=== PATIENT | male | born 1975 | race Caucasian/White ===

== ENCOUNTER 2020-06-20 15:53 | Inpatient (IN) | payer SELFPAY ==
[2020-06-20 15:58] VITALS: BMI 18.2
[2020-06-20 16:10] VITALS: BP 138/83; PULSE 108; RESP 15; O2SAT 97
--- NOTE | 2020-06-20 16:14 | CT_ITS ---
WS: [id number] CT scan of the head, 06/20/2020 Clinical Data: psychosis/AMS Comparison: None. DLP: 891.[address] scans at [facility] use at least one of these dose optimization techniques: automat ed exposure control; mA and/or kV adjustment per patient size (includes targeted exams where dose is matched to clinical indication); or iterative reconstruction. Findings: The ventricular system is normal without shift. No recent infarct or hemorrhage is seen. There are no abnormal intracerebral masses. The cerebellum and brainstem are not remarkable. Bony windows of the skull and skull base show no fractures or erosions. The mastoid air cells, pharmacy grad intern al auditory canals, sella turcica, intraorbital contents, and paranasal sinuses are unremarkable. CT/CT head wo con* 82488 Impression: Negative CT scan of the head
--- NOTE | 2020-06-20 16:15 | ED_ITS ---
Documented by User: MAC Sue 06/20/20 17:01 HPI - Psych General: Chief Complaint: Psychiatric Symptoms Stated Complaint: PSYCH EVAL Time Seen by Provider: 06/20/20 16:01 Source: police Mode of arrival: ambulatory Limitations: no limitations History of Present Illness: HPI Narrative: Patient is a 45-year-old male who presents to ED today via EMS for complaints of paranoia and bizarre behavior. According to EMS patient overheard an announcement that the radio that his cigarettes had been poisoned with arsenic. Patient tells me he feels like [employer] has his phone bugged. He tells me he is going to prank the [employer] and place his cell phone up to a [employer] radio and have the information broadcasted globally. Patient denies history of psychiatric illness. He denies drug use. We have no previous records for patient. MD complaint: other (psychosis ) Associated symptoms: Deny homicidal ideation or suicidal ideation Review of Systems Const: Denies: fever(s) or chills Eyes: Denies: change in vision Card: Denies: chest pain Resp: Denies: dyspnea GI: Denies: abdominal pain Musc: Denies: neck pain or back pain Skin/Breast: Denies: rash Neuro: Denies: headache(s) Psych: Reports: other (denies hallucinations/paranoia); Denies: suicidal ideation or homicidal ideation Physical Exam Const: COMMON NORMALS: no acute distress, patient oriented x3, no limitations and alert EXAM LIMITATIONS: other limitations (psychosis) GENERAL APPEARANCE: cooperative ORIENTATION/CONSCIOUSNESS: Yes awake, Yes oriented to person, Yes oriented to place and Yes oriented to time HENMT: TEETH & GINGIVA: Yes poor dentition Resp: COMMON NORMALS: normal respiratory effort and clear to auscultation bilaterally AUSCULTATION: clear to auscultation bilaterally Cardio: COMMON NORMALS: regular rate and regular rhythm RATE: regular rate RHYTHM: regular rhythm Neuro: ALEX COMA SCALE: document GCS findings Alex coma scale eye opening: Spontaneous Alex coma scale verbal response: Orientated [place] coma scale motor response: Obey commands Alex coma scale total score: 15 COMMON NORMALS: patient oriented x3 SENSORIUM/ORIENTATION: Yes alert, Yes oriented to person, Yes oriented to place and Yes oriented to time Psych: COMMON NORMALS: Normal thought process present, cooperative, activity/motor behavior normal, denies hallucinations, denies homicidal ideation and denies suicidal ideation APPEARANCE: Yes grossly normal ATTITUDE: Yes paranoid ACTIVITY/MOTOR BEHAVIOR: Yes appropriate eye contact SPEECH: Yes slow MOOD & AFFECT: Yes euthymic mood THOUGHT PROCESS: Normal thought process present ATTENTION/CONCENTRATION: Yes attention grossly intact and Yes concentration grossly intact MEMORY/COGNITION: Yes memory grossly intact INSIGHT: Poor insight present (Psych) JUDGEMENT: Limited judgement present (Psych) MDM - Psych MDM Narrative: Medical decision making narrative: Care transferrd to [facility] pending work up/labs. CT head ordered due to no known hx of psychosis. This is negative. Lab Data: Labs: Lab Results 06/20/20 06/20/20 06/20/20 Range/Units 17:45 17:45 19:26 WBC 8.3 (4.0-10.0) 10^3/ uL RBC 4.86 (4.1-5.3) 10^6/u L Hgb 15.6 (11.7-16.6) g/dL Hct 46.8 (42.0-52.0) % MCV 96.3 H (80-94) fL MCH 32.1 (28.0-34.0) pg MCHC 33.3 (30.0-36.0) g/dL RDW 12.4 (12.1-15.1) % Plt Count 319 (130-400) 10^3/c mm MPV 9.6 (7.4-10.4) fL Neut % (Auto) 64.8 % Lymph % (Auto) 24.0 % Platte % (Auto) 9.3 % Eos % (Auto) 1.0 % Baso % (Auto) 0.5 % Neut # (Auto) 5.35 (1.8-7.7) 10^3/u L Lymph # (Auto) 2.0 (0.8-4.8) 10^3/u L Platte # (Auto) 0.8 (0.2-0.9) 10^3/u L Eos # (Auto) 0.1 (0.0-0.8) 10^3/u L Baso # (Auto) 0.0 (0.0-0.1) 10^3/u L Nucleated RBC % (a uto) 0 % Nucleated RBCs # 0.0 /100WBC Sodium (136-145) mmol/L Potassium (3.5-5.1) mmol/L Chloride (98-107) mmol/L Carbon Dioxide (22-29) mmol/L Anion Gap (5-19) BUN (6-20) mg/dL Creatinine (0.7-1.2) mg/dL GFR Calculation (90-130) mL/min Glucose (65-115) mg/dL Calculated Osmolal ity (285-295) mOsm/k g Calcium (8.5-10.5) mg/dL Total Bilirubin (0.15-1.2) mg/dL AST (0-40) U/L ALT (0-41) U/L Alkaline Phosphata se (40-130) IU/L Total Protein (6.6-8.7) g/dL Albumin (3.5-5.2) g/dL Globulin (1.3-4.6) g/dL TSH (0.27-4.20) uIU/ mL Urine Color Yellow (Yellow) Urine Appearance Clear (CLEAR) Urine pH 5 (5-7) Ur Specific Gravit y 1.020 (1.005-1.030) Urine Protein Neg (Negative) Urine Glucose (UA) Norm (Normal) Urine Ketones 1+ H (Negative) Urine Blood Neg (Negative) Urine Nitrate Negative (Negative) Urine Bilirubin Neg (Negative) Urine Urobilinogen Norm (Negative) mg/dL Ur Leukocyte Jenni ase Negative (Negative) Salicylates (3-10) mg/dL Urine Opiates Scre en Negative (Negative) ng/mL Acetaminophen (10-30) ug/mL Ur Barbiturates Sc reen Negative (Negative) ng/mL Ur Phencyclidine S crn Negative (Negative) ng/mL Ur Amphetamines Sc reen Negative (Negative) ng/mL U Benzodiazepines Scrn Negative (Negative) ng/mL Urine Cocaine Scre en Negative (Negative) ng/mL U Marijuana (THC) Screen Negative (Negative) ng/mL Ethyl Alcohol (0-10) mg/dL 06/20/20 Range/Units 19:26 WBC (4.0-10.0) 10^3/ uL RBC (4.1-5.3) 10^6/u L Hgb (11.7-16.6) g/dL Hct (42.0-52.0) % MCV (80-94) fL MCH (28.0-34.0) pg MCHC (30.0-36.0) g/dL RDW (12.1-15.1) % Plt Count (130-400) 10^3/c mm MPV (7.4-10.4) fL Neut % (Auto) % Lymph % (Auto) % Platte % (Auto) % Eos % (Auto) % Baso % (Auto) % Neut # (Auto) (1.8-7.7) 10^3/u L Lymph # (Auto) (0.8-4.8) 10^3/u L Platte # (Auto) (0.2-0.9) 10^3/u L Eos # (Auto) (0.0-0.8) 10^3/u L Baso # (Auto) (0.0-0.1) 10^3/u L Nucleated RBC % (a uto) % Nucleated RBCs # /100WBC Sodium 138 (136-145) mmol/L Potassium 4.0 (3.5-5.1) mmol/L Chloride 101 (98-107) mmol/L Carbon Dioxide 27 (22-29) mmol/L Anion Gap 14.0 (5-19) BUN 11 (6-20) mg/dL Creatinine 0.8 (0.7-1.2) mg/dL GFR Calculation 105.0 (90-130) mL/min Glucose 91 (65-115) mg/dL Calculated Osmolal ity 285 (285-295) mOsm/k g Calcium 9.5 (8.5-10.5) mg/dL Total Bilirubin 0.4 (0.15-1.2) mg/dL AST 19 (0-40) U/L ALT 12 (0-41) U/L Alkaline Phosphata se 55 (40-130) IU/L Total Protein 7.4 (6.6-8.7) g/dL Albumin 4.6 (3.5-5.2) g/dL Globulin 2.8 (1.3-4.6) g/dL TSH 1.73 (0.27-4.20) uIU/ mL Urine Color (Yellow) Urine Appearance (CLEAR) Urine pH (5-7) Ur Specific Gravit y (1.005-1.030) Urine Protein (Negative) Urine Glucose (UA) (Normal) Urine Ketones (Negative) Urine Blood (Negative) Urine Nitrate (Negative) Urine Bilirubin (Negative) Urine Urobilinogen (Negative) mg/dL Ur Leukocyte Jenni ase (Negative) Salicylates 1.3 L (3-10) mg/dL Urine Opiates Scre en (Negative) ng/mL Acetaminophen < 5.0 L (10-30) ug/mL Ur Barbiturates Sc reen (Negative) ng/mL Ur Phencyclidine S crn (Negative) ng/mL Ur Amphetamines Sc reen (Negative) ng/mL U Benzodiazepines Scrn (Negative) ng/mL Urine Cocaine Scre en (Negative) ng/mL U Marijuana (THC) Screen (Negative) ng/mL Ethyl Alcohol < 10 (0-10) mg/dL Imaging Data^: CT Head: Radiologist's impression: [address] [address] [address] Scan Report Signed Patient: Hakan Lubin JRUnit #: [id number] : 1975Acct#:[id number] Age/Sex: 45 / MADM Date: 06/20/20 Loc: ERRoom/Bed: Attending Dr: Ordering Provider/Ordering MD: Genny Smith Date of Service: 06/20/20 Procedure(s): CT head wo con* [id number] Accession Number(s): [id number] Report Number: [id number] WS: [id number] CT scan of the head, 06/20/2020 Clinical Data: psychosis/AMS Comparison: None. DLP: 891.[address] scans at [facility] use at least one of these dose optimization techniques: automated exposure control; mA and/or kV adjustment per patient size (includes targeted exams where dose is matched to clinical indication); or iterative reconstruction. Findings: The ventricular system is normal without shift. No recent infarct or hemorrhage is seen. There are no abnormal intracerebral masses. The cerebellum and brainstem are not remarkable. Bony windows of the skull and skull base show no fractures or erosions. The mastoid air cells, internal auditory canals, sella turcica, intraorbital contents, and paranasal sinuses are unremarkable. CT/CT head wo con* 81568 Impression: Negative CT scan of the head Dictated By:Rhoda Abreu MD Signed By:Rhoda Abreu MDSigned Date/Time:06/20/20 1636 DD/ 163 Discharge Plan Discharge Patient Disposition: Admitted As Inpatient Admit Provider: Krish Cool Clinical Impression: Acute psychosis Condition: Stable Sign Out Sign Out Data: Patient Sign Out occurred on 06/20/20 at 17:35. Patient's care was discussed, and care was transferred from to MELI Daly. Post-Handoff Eval: Report received from MAC Sue, agree with HPI and clinical exam completed by MAC Sue. Serology testing pending at this time. Coding Level of Care Code ED Market Basket Maker for Chg Fwd Exam Detailed Documented by User: MELI Daly 06/21/20 00:01 HPI - Psych General: Chief Complaint: Psychiatric Symptoms Stated Complaint: PSYCH EVAL Time Seen by Provider: 06/20/20 16:01 MDM - Psych Lab Data: Labs: Lab Results 06/20/20 06/20/20 06/20/20 Range/Units 17:45 17:45 19:26 WBC 8.3 (4.0-10.0) 10^3/ uL RBC 4.86 (4.1-5.3) 10^6/u L Hgb 15.6 (11.7-16.6) g/dL Hct 46.8 (42.0-52.0) % MCV 96.3 H (80-94) fL MCH 32.1 (28.0-34.0) pg MCHC 33.3 (30.0-36.0) g/dL RDW 12.4 (12.1-15.1) % Plt Count 319 (130-400) 10^3/c mm MPV 9.6 (7.4-10.4) fL Neut % (Auto) 64.8 % Lymph % (Auto) 24.0 % Platte % (Auto) 9.3 % Eos % (Auto) 1.0 % Baso % (Auto) 0.5 % Neut # (Auto) 5.35 (1.8-7.7) 10^3/u L Lymph # (Auto) 2.0 (0.8-4.8) 10^3/u L Platte # (Auto) 0.8 (0.2-0.9) 10^3/u L Eos # (Auto) 0.1 (0.0-0.8) 10^3/u L Baso # (Auto) 0.0 (0.0-0.1) 10^3/u L Nucleated RBC % (a uto) 0 % Nucleated RBCs # 0.0 /100WBC Sodium (136-145) mmol/L Potassium (3.5-5.1) mmol/L Chloride (98-107) mmol/L Carbon Dioxide (22-29) mmol/L Anion Gap (5-19) BUN (6-20) mg/dL Creatinine (0.7-1.2) mg/dL GFR Calculation (90-130) mL/min Glucose (65-115) mg/dL Calculated Osmolal ity (285-295) mOsm/k g Calcium (8.5-10.5) mg/dL Total Bilirubin (0.15-1.2) mg/dL AST (0-40) U/L ALT (0-41) U/L Alkaline Phosphata se (40-130) IU/L Total Protein (6.6-8.7) g/dL Albumin (3.5-5.2) g/dL Globulin (1.3-4.6) g/dL TSH (0.27-4.20) uIU/ mL Urine Color Yellow (Yellow) Urine Appearance Clear (CLEAR) Urine pH 5 (5-7) Ur Specific Gravit y 1.020 (1.005-1.030) Urine Protein Neg (Negative) Urine Glucose (UA) Norm (Normal) Urine Ketones 1+ H (Negative) Urine Blood Neg (Negative) Urine Nitrate Negative (Negative) Urine Bilirubin Neg (Negative) Urine Urobilinogen Norm (Negative) mg/dL Ur Leukocyte Jenni ase Negative (Negative) Salicylates (3-10) mg/dL Urine Opiates Scre en Negative (Negative) ng/mL Acetaminophen (10-30) ug/mL Ur Barbiturates Sc reen Negative (Negative) ng/mL Ur Phencyclidine S crn Negative (Negative) ng/mL Ur Amphetamines Sc reen Negative (Negative) ng/mL U Benzodiazepines Scrn Negative (Negative) ng/mL Urine Cocaine Scre en Negative (Negative) ng/mL U Marijuana (THC) Screen Negative (Negative) ng/mL Ethyl Alcohol (0-10) mg/dL 06/20/20 Range/Units 19:26 WBC (4.0-10.0) 10^3/ uL RBC (4.1-5.3) 10^6/u L Hgb (11.7-16.6) g/dL Hct (42.0-52.0) % MCV (80-94) fL MCH (28.0-34.0) pg MCHC (30.0-36.0) g/dL RDW (12.1-15.1) % Plt Count (130-400) 10^3/c mm MPV (7.4-10.4) fL Neut % (Auto) % Lymph % (Auto) % [place]atte % (Auto) % Eos % (Auto) % Baso % (Auto) % Neut # (Auto) (1.8-7.7) 10^3/u L Lymph # (Auto) (0.8-4.8) 10^3/u L Platte # (Auto) (0.2-0.9) 10^3/u L Eos # (Auto) (0.0-0.8) 10^3/u L Baso # (Auto) (0.0-0.1) 10^3/u L Nucleated RBC % (a uto) % Nucleated RBCs # /100WBC Sodium 138 (136-145) mmol/L Potassium 4.0 (3.5-5.1) mmol/L Chloride 101 (98-107) mmol/L Carbon Dioxide 27 (22-29) mmol/L Anion Gap 14.0 (5-19) BUN 11 (6-20) mg/dL Creatinine 0.8 (0.7-1.2) mg/dL GFR Calculation 105.0 (90-130) mL/min Glucose 91 (65-115) mg/dL Calculated Osmolal ity 285 (285-295) mOsm/k g Calcium 9.5 (8.5-10.5) mg/dL Total Bilirubin 0.4 (0.15-1.2) mg/dL AST 19 (0-40) U/L ALT 12 (0-41) U/L Alkaline Phosphata se 55 (40-130) IU/L Total Protein 7.4 (6.6-8.7) g/dL Albumin 4.6 (3.5-5.2) g/dL Globulin 2.8 (1.3-4.6) g/dL TSH 1.73 (0.27-4.20) uIU/ mL Urine Color (Yellow) Urine Appearance (CLEAR) Urine pH (5-7) Ur Specific Gravit y (1.005-1.030) Urine Protein (Negative) Urine Glucose (UA) (Normal) Urine Ketones (Negative) Urine Blood (Negative) Urine Nitrate (Negative) Urine Bilirubin (Negative) Urine Urobilinogen (Negative) mg/dL Ur Leukocyte Jenni ase (Negative) Salicylates 1.3 L (3-10) mg/dL Urine Opiates Scre en (Negative) ng/mL Acetaminophen < 5.0 L (10-30) ug/mL Ur Barbiturates Sc reen (Negative) ng/mL Ur Phencyclidine S crn (Negative) ng/mL Ur Amphetamines Sc reen (Negative) ng/mL U Benzodiazepines Scrn (Negative) ng/mL Urine Cocaine Scre en (Negative) ng/mL U Marijuana (THC) Screen (Negative) ng/mL Ethyl Alcohol < 10 (0-10) mg/dL EKG Data^: EKG 1: EKG interpretation date: 06/20/20 EKG interpretation time: 19:55 Prior EKG tracings: not available for review Other EKG comments: Sinus rhythm, borderline right axis deviation, nonspecific T wave abnormality Discharge Plan Discharge Patient Disposition: Admitted As Inpatient Admit Provider: Krish Cool Clinical Impression: Acute psychosis Condition: Stable Sign Out Sign Out Data: Patient Sign Out occurred on 06/20/20 at 17:35. Patient's care was discussed, and care was transferred from to MELI Daly. Post-Handoff Eval: Report received from MAC Sue, agree with HPI and clinical exam completed by MAC Sue. Serology testing pending at this time. Coding Level of Care Code ED Market Basket Maker for Chg Fwd Exam Detailed
[2020-06-20 17:10] VITALS: BP 105/46; PULSE 80; RESP 15; O2SAT 97
[2020-06-20 17:47] LABS: Add Urine Microscopic? NO
[2020-06-20 17:56] LABS: Bilirubin Urine Neg (Negative); Blood Urine Neg (Negative); Glucose Urine UA Norm (Normal); Ketones Urine 1+ (Negative); Leukocyte Esterase Urine Negative (Negative); Nitrate Urine Negative (Negative); Protein Urine Neg (Negative); Urine Appearance Clear (CLEAR); Urine Color Yellow (Yellow); Urobilinogen Urine Norm (Negative); pH Urine 5 (5-7)
[2020-06-20 18:03] LABS: Amphetamines Screen Urine Negative (Negative); Barbiturates Screen Urine Negative (Negative); Benzodiazepines Screen Urine Negative (Negative); Cocaine Screen Urine Negative (Negative); Opiate Screen Urine Negative (Negative); PCP Screen Urine Negative (Negative); THC Screen Urine Negative (Negative)
[2020-06-20] MEDS: diphenhydrAMINE 50 mg/mL SDV 1mL IM (18:20)
--- NOTE | 2020-06-20 18:25 | ECG_ITS ---
[facility] Test Date: 2020-06-20 Pat Name: Hakan Lubin Department: Room: Gender: Male Career Developer: : 1975 Requested By: Roxie Sandoval Order Number: [id number] Floridalma MD: Isabel Cross M.D. Measurements Intervals [place] Rate: 83 P: 67 AK: 137 QRS: 94 QRSD: 87 T: 35 QT: 333 QTc: 392 Interpretive Statements SINUS RHYTHM BORDERLINE RIGHT AXIS DEVIATION [QRS AXIS > 90] NONSPECIFIC T-WAVE ABNORMALITY No previous ECG available for comparison Electronically Signed On 06-20-2020 20:20:09 FITTINGS TIGHTENER by Isabel Cross M.D. [id number]
[2020-06-20 19:55] LABS: Basophils % 0.5 %; Eosinophils # 0.1 10^3/uL (0.0-0.8); Hematocrit 46.8 % (42.0-52.0); Hemoglobin 15.6 g/dL (11.7-16.6); Mean Corpuscular HGB Conc 33.3 g/dL (30.0-36.0); Mean Corpuscular Hemoglobin 32.1 pg (28.0-34.0); Mean Corpuscular Volume 96.3 fL (80-94); Mean Platelet Volume 9.6 fL (7.4-10.4); Monocytes # 0.8 10^3/uL (0.2-0.9); Monocytes % 9.3 %; Neutrophils # 5.35 10^3/uL (1.8-7.7); Neutrophils % 64.8 %; Nucleated Red Blood Cells % 0 %; Platelet Count 319 10^3/cmm (130-400); Red Blood Count 4.86 10^6/uL (4.1-5.3); Red Cell Distribution Width 12.4 % (12.1-15.1); White Blood Count 8.3 10^3/uL (4.0-10.0)
[2020-06-20 20:20] LABS: Alanine Aminotransferase 12 U/L (0-41); Albumin Level 4.6 g/dL (3.5-5.2); Alkaline Phosphatase 55 IU/L (40-130); Aspartate Amino Transferase 19 U/L (0-40); Blood Urea Nitrogen 11 mg/dL (6-20); Calcium 9.5 mg/dL (8.5-10.5); Carbon Dioxide 27 mmol/L (22-29); Chloride 101 mmol/L (98-107); Globulin 2.8 g/dL (1.3-4.6); Glucose 91 mg/dL (65-115); Osmolality Calculated 285 mOsm/kg (285-295); Salicylate 1.3 mg/dL (3-10); Sodium 138 mmol/L (136-145); Thyroid Stimulating Hormone 1.73 uIU/mL (0.27-4.20); Total Bilirubin 0.4 mg/dL (0.15-1.2); Total Protein 7.4 g/dL (6.6-8.7)
[2020-06-20 20:29] LABS: Acetaminophen < 5.0 ug/mL (10-30); Alcohol Level < 10 mg/dL (0-10)
[2020-06-20 21:52] VITALS: BP 122/81; PULSE 71; RESP 18; O2SAT 99
[2020-06-20 22:11] VITALS: BP 120/81; PULSE 73; RESP 18; TEMP 36.8; O2SAT 97
[2020-06-21 06:00] VITALS: BP 127/83; PULSE 116; RESP 18; TEMP 36.8; O2SAT 97
--- NOTE | 2020-06-21 06:56 | PC.NURSE ---
Patient presented to the nurses station asking about [employer] asking if someone in the E.D Tanted them and is that why he is here?
[2020-06-21] MEDS: nicotine 2 mg Gum BUCCAL (10:45)
[2020-06-21 13:28] VITALS: BP 106/69; PULSE 85; RESP 16; TEMP 37; O2SAT 99
--- NOTE | 2020-06-21 14:14 | PC.NURSE ---
CONTACT INFO CHIDI FIERRO [phone]
--- NOTE | 2020-06-21 15:45 | P.HP_ITS ---
Providers/Chief Complaint Admitting Physician: Krish Cool MD Chief Complaint: PSYCH EVAL HPI NPU History of Present Illness Hakan Lubin JR is a 45 year old male who presented to the emergency department with the following report: Chief Complaint: Psychiatric Symptoms Stated Complaint: PSYCH EVAL Time Seen by Provider: 06/20/20 16:01 Source: police Mode of arrival: ambulatory Limitations: no limitations History of Present Illness: HPI Narrative: Patient is a 45-year-old male who presents to ED today via EMS for complaints of paranoia and bizarre behavior. According to EMS patient overheard an announcement that the radio that his cigarettes had been poisoned with arsenic. Patient tells me he feels like the [employer] has his phone bugged. He tells me he is going to prank the [employer] and place his cell phone up to a [employer] radio and have the information broadcasted globally. Patient denies history of psychiatric illness. He denies drug use. We have no previous records for patient. MD complaint: other (psychosis ) Associated symptoms: Deny homicidal ideation or suicidal ideation. He was admitted to the neuropsychiatric unit for definitive treatment of those issues. There was significant family involvement in the evaluation of Hakan. And the report is that he has a long standing history of mental health issues. Specifically they endorse that he has cognitive limitations but has essentially been medication avoidant and has survived on his own savvy as well as the supp ort of his family. He is part of a sophisticated support network that cares for his aging father and his uncle. We all look out for 1 another. Is also been able to hold a job at [employer] for 10 to 15 years and the family has great concern about him losing the job for this reason. He is never really been on medication and does not have insurance. We discussed the risk benefits and alternatives of initiating low-dose Haldol. And he understood and agreed to proceed as is documented in this note. Is unclear whether he will actually take it but the first dose went well. Psychiatric history: As above. No significant formal treatment. Substance abuse history: Some cigarette and alcohol use in his life but no significant sequela and illicit drug use denied. Family history: Significant family history denied. Developmental history: There were no issues with or delivery but they report developmental delays, speech therapy learning support emotional support and special education classes throughout school. Psychosocial history: Much of his family history was limited but he reports that he had normal childhood that he still lives with his dad and essentially take care of him as he has Alzheimer's. Legal history: He denied any significant legal peril. Medical history: Please see emergency room note. Meds NPU Home Medications Medication Instructions Recorded Confirmed Last Taken Type haloperidol 2.5 mg PO BID 30 Days #30 tab 06/21/20 Unknown Rx Allergies Allergy/AdvReac Type Severity Reaction Status Date / Time muscle relaxers Allergy Unknown Unknown Uncoded 06/20/20 16:55 Mental Status Exam MSE Comments: This is a underweight white male in hospital scrubs with limited grooming and eye contact. No abnormal movements except for mild psychomotor retardation which is likely a stable factor. Cooperative with exam in no acute distress. Speech was limited rate and volume. Mood described as fine affect subdued. Thought process organized. Thought content: Patient denied suicidal or homicidal ideations, there were no delusions reported but some likely stable paranoia existed, he denied auditory visual hallucinations but did give stories that suggested auditory hallucinations. Attention and concentration were intact and memory appeared reliable but none were formally tested. He is alert and oriented x3. Insight and judgment are limited, impulse control appears fair, and intellectual ability appears impaired. Vitals/I&O/Wt Last Vital Signs Temp 98.6 F 06/21/20 17:16 Pulse 85 06/21/20 17:16 Resp 16 06/21/20 17:16 BP 106/69 06/21/20 17:16 Pulse Ox 99 06/21/20 17:16 Weight last 48 hrs Weight 64.41 kg Data NPU : 06/20/20 19:26 06/20/20 19:26 A&P Assessment and plan (1) Cluster A personality disorder: Status: Acute (2) Intellectual disability: Status: Acute (3) Acute psychosis: Status: Acute Additional A&P Information This is a 45-year-old white male with longstanding intellectual disability possible cluster a personality disorder and likely stable psychosis which is remain untreated as his family has been a sort of bubble for him to function safely in the community. He was open to a trial of medication if it did not mean he had to stay in the hospital. We try to meet him where he was to encourage engagement in treatment especially given that his family is getting older and it would benefit him to have a relationship with a local treatment community. 1. Continue current medication. Start Haldol 5 mg one half p.o. twice daily and encouraged him to at least consider the medication. He had 1 dose without any side effects. 2. Continue every 15 minute checks for safety. 3. Encourage individual, group and milieu therapies. 4. We will connect him with outpatient services and encouraged him to participate even though he is fairly resistant. Involuntary Hold Information 96 Hour Hold: 96 Hour Involuntary Admission: Yes 96 Hour Hold Ending Date: 06/26/20 96 Hour Hold Ending Time: 16:45 Attestations NPU Medical Necessity Statement*: Hospitalization would be medically beneficial but he currently does not pose a threat to himself or others, and we have great angst and concerns if he was unable to get to his job which is a very anchoring reality in his life. Him not posing a threat he was allowed to discharge. 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
[2020-06-21] MEDS: haloperidol 1 mg Tablet 2.5 MG PO (15:49)
[2020-06-21 17:16] VITALS: BP 106/69; PULSE 85; RESP 16; TEMP 37; O2SAT 99
[2020-06-21 17:47] VITALS: BP 106/69; PULSE 85; RESP 16; TEMP 37; O2SAT 99
--- NOTE | 2020-06-21 17:47 | P.DS_ITS ---
Diagnoses at Discharge Discharge Diagnosis (1) Cluster A personality disorder: Status: Acute (2) Intellectual disability: Status: Acute (3) Psychosis: Status: Acute Reason for Visit Reason for Visit: PSYCH EVAL Brief History: History of Present Illness Hakan Lubin JR is a 45 year old male who presented to the emergency department with the following report: Chief Complaint: Psychiatric Symptoms Stated Complaint: PSYCH EVAL Time Seen by Provider: 06/20/20 16:01 Source: police Mode of arrival: ambulatory Limitations: no limitations History of Present Illness: HPI Narrative: Patient is a 45-year-old male who presents to ED today via EMS for complaints of paranoia and bizarre behavior. According to EMS patient overheard an announcement that the radio that his cigarettes had been poisoned with arsenic. Patient tells me he feels like the [employer] has his phone bugged. He tells me he is going to prank the [employer] and place his cell phone up to a [employer] radio and have the information broadcasted globally. Patient denies history of psychiatric illness. He denies drug use. We have no previous records for patient. MD complaint: other (psychosis ) Associated symptoms: Deny homicidal ideation or suicidal ideation. He was admitted to the neuropsychiatric unit for definitive treatment of those issues. There was significant family involvement in the evaluation of Hakan. And the report is that he has a long standing history of mental health issues. Specifically they endorse that he has cognitive limitations but has essentially been medication avoidant and has survived on his own savvy as well as the support of his family. He is part of a sophisticated support network that cares for his aging father and his uncle. We all look out for 1 another. Is also been able to hold a job at [employer] for 10 to 15 years and the family has great concern about him losing the job for this reason. He is never really been on medication and does not have insurance. We discussed the risk benefits and alternatives of initiating low-dose Haldol. And he understood and agreed to proceed as is documented in this note. Is unclear whether he will actually take it but the first dose went well. Psychiatric history: As above. No significant formal treatment. Substance abuse history: Some cigarette and alcohol use in his life but no significant sequela and illicit drug use denied. Family history: Significant family history denied. Developmental history: There were no issues with or delivery but they report developmental delays, speech therapy learning support emotional support and special education classes throughout school. Psychosocial history: Much of his family history was limited but he reports that he had normal childhood that he still lives with his dad and essentially take care of him as he has Alzheimer's. Legal history: He denied any significant legal peril. Medical history: Please see emergency room note. Hospital Course Hospital Course Hakan presented to the emergency department with psychosis and reported concern for safety. He was admitted to the neuropsychiatric unit for definitive treatment of those issues. On the unit he slowly acclimated to the individual, group and milieu therapies. It became clear that he had intellectual disability and likely most of his symptoms have been stable with normal variation/fluctuations. Spoke to his family confirming this reality. It would seem however that he might benefit from a low-dose antipsychotic and he had no insurance. We were able to convince him to take a small low-dose of Haldol and consider taking that as an outpatient. He was evaluated and seemed to pose no risk and was able to contract for safety and it was determined that keeping him would have less benefit than starting the development of over 4 to hopefully engage him in treatment ongoing. During the hospitalization, patient had routine laboratory studies which were within normal limits except for few outliers. Additionally there was a general medical evaluation which was also within normal limits and revealed no new acute processes. Discharge Summary: At the time of discharge, lethality was denied and psychosis was stable paranoia . Mood and anxiety were well managed. Patient endorsed a plan to avoid all drugs of abuse and follow-up with the aftercare recommendations of the treatment team. Patient was evaluated and deemed to be absent credible lethality, and had achieved the maximum benefit from an inpatient hospitalization, so was discharged. Involuntary Hold Information 96 Hour Hold: 96 Hour Involuntary Admission: Yes 96 Hour Hold Ending Date: 06/26/20 96 Hour Hold Ending Time: 16:45 Mental Status Exam MSE Comments: This is a underweight white male in hospital scrubs with limited grooming and eye contact. No abnormal movements except for mild psychomotor retardation which is likely a stable factor. Cooperative with exam in no acute distress. Speech was limited rate and volume. Mood described as fine affect subdued. Thought process organized. Thought content: Patient denied suicidal or homicidal ideations, there were no delusions reported but some likely stable paranoia existed, he denied auditory visual hallucinations but did give stories that suggested auditory hallucinations. Attention and concentration were intact and memory appeared reliable but none were formally tested. He is alert and oriented x3. Insight and judgment are limited, impulse control appears fair, and intellectual ability appears impaired. Discharge Data Data Completed and Pending: Completed Studies During Hospitalization Category Date Time Status CT head wo con* 7 0450 Urgent Cat Scan 06/20/20 16:14 Completed Labs from last 24 hours 06/20/20 06/20/20 06/20/20 19:26 19:26 17:45 WBC 8.3 RBC 4.86 Hgb 15.6 Hct 46.8 MCV 96.3 H MCH 32.1 MCHC 33.3 RDW 12.4 Plt Count 319 MPV 9.6 Neut % (Auto) 64.8 Lymph % (Auto) 24.0 Haskell % (Auto) 9.3 Eos % (Auto) 1.0 Baso % (Auto) 0.5 Neut # (Auto) 5.35 Lymph # (Auto) 2.0 Haskell # (Auto) 0.8 Eos # (Auto) 0.1 Baso # (Auto) 0.0 Nucleated RBC % (a uto) 0 Nucleated RBCs # 0.0 Sodium 138 Potassium 4.0 Chloride 101 Carbon Dioxide 27 Anion Gap 14.0 BUN 11 Creatinine 0.8 GFR Calculation 105.0 Glucose 91 Calculated Osmolal ity 285 Calcium 9.5 Total Bilirubin 0.4 AST 19 ALT 12 Alkaline Phosphata se 55 Total Protein 7.4 Albumin 4.6 Globulin 2.8 TSH 1.73 Urine Color Urine Appearance Urine pH Ur Specific Gravit y Urine Protein Urine Glucose (UA) Urine Ketones Urine Blood Urine Nitrate Urine Bilirubin Urine Urobilinogen Ur Leukocyte Jenni ase Salicylates 1.3 L Urine Opiates Scre en Negative Acetaminophen < 5.0 L Ur Barbiturates Sc reen Negative Ur Phencyclidine S crn Negative Ur Amphetamines Sc reen Negative U Benzodiazepines Scrn Negative Urine Cocaine Scre en Negative U Marijuana (THC) Screen Negative Ethyl Alcohol < 10 06/20/20 17:45 WBC RBC Hgb Hct MCV MCH MCHC RDW Plt Count MPV Neut % (Auto) Lymph % (Auto) Haskell % (Auto) Eos % (Auto) Baso % (Auto) Neut # (Auto) Lymph # (Auto) Haskell # (Auto) Eos # (Auto) Baso # (Auto) Nucleated RBC % (a uto) Nucleated RBCs # Sodium Potassium Chloride Carbon Dioxide Anion Gap BUN Creatinine GFR Calculation Glucose Calculated Osmolal ity Calcium Total Bilirubin AST ALT Alkaline Phosphata se Total Protein Albumin Globulin TSH Urine Color Yellow Urine Appearance Clear Urine pH 5 Ur Specific Gravit y 1.020 Urine Protein Neg Urine Glucose (UA) Norm Urine Ketones 1+ H Urine Blood Neg Urine Nitrate Negative Urine Bilirubin Neg Urine Urobilinogen Norm Ur Leukocyte Jenni ase Negative Salicylates Urine Opiates Scre en Acetaminophen Ur Barbiturates Sc reen Ur Phencyclidine S crn Ur Amphetamines Sc reen U Benzodiazepines Scrn Urine Cocaine Scre en U Marijuana (THC) Screen Ethyl Alcohol Vitals: Last Vital Signs Temp 98.6 F 06/21/20 17:16 Pulse 85 06/21/20 17:16 Resp 16 06/21/20 17:16 BP 106/69 06/21/20 17:16 Pulse Ox 99 06/21/20 17:16 Discharge Plan Discharge Patient Disposition: Home Condition: Stable Prescriptions: New haloperidol 5 mg Tablet 2.5 mg PO BID 30 Days Qty: 30 RF: 1 Discharge Orders: Discharge Order (Routine); Ordered 06/21/20 Ordered By: Krish Cool Referrals: [facility] [Outside] - 1-3 days (Please fill out the paperwork that was sent home with you and return it to [facility] when your done and they will schedule an appointment for you. 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
== END 2020-06-21 17:55 | disposition home or self-care (01) | DRG 885 ==
LOC: ER 21:02 → NP 21:20
PROVIDERS: Family Medicine; Admitting Provider Psychiatry & Neurology Psychiatry; Emergency Provider Nurse Practitioner Family; Visit Provider Psychiatry & Neurology Psychiatry
DX: F23 Brief psychotic disorder (principal); F60.89 Other specific personality disorders; F79 Unspecified intellectual disabilities
CPT/HCPCS: 12345; 36415; 70450; 80053; 80306; 80307; 81003; 84443; 85025; 93005; 96372; 99284; J1200

== ENCOUNTER 2020-08-27 06:06 | Inpatient (IN) | payer SELFPAY ==
[2020-08-27] VITALS (12 sets, daily range): BP systolic 117–148; BP diastolic 74–91; PULSE 61–96; RESP 14–20; TEMP 36.4–37.1; O2SAT 98–100; BMI 22.4
--- NOTE | 2020-08-27 06:29 | W.ED.AMS ---
HPI - Altered Mental Status General: Chief Complaint: Altered Mental Status Stated Complaint: confused Time Seen by Provider: 08/27/20 06:10 History of Present Illness: HPI narrative: 45-year-old male brought in by EMS. Evidently he was at work after he had clocked out of work he was found outside standing staring off into space he was not talking he did not respond he acted out would not follow any commands. EMS was called his blood glucose at the scene is 102 his vital signs were stable. On arrival here he can tell me that he is in [place] when I checked his wallet for an ID for a name there was no idea in the wall but a credit card had his correct name on it. He noted that his identification was missing. He smells strongly of tobacco smoke but does not smell of alcohol. There are no tracks on his arm. His only medication listed on his chart at this time is Haldol 2.5 twice daily he is unsure if he took any does not really respond when asked. MD complaint: altered mental status Onset (ago): minute(s) Timing confirmed by: other ([employer]) Severity: moderate Context: history of similar presentation Associated symptoms: Deny auditory hallucinations, visual hallucinations, delusions, depression, homicidal ideation, racing thoughts or suicidal ideation Review of Systems General: Reports: ROS unobtainable due to mental status Psych: Denies: depression, visual hallucinations, auditory hallucinations, suicidal ideation or homicidal ideation Physical Exam Const: COMMON NORMALS: no acute distress GENERAL APPEARANCE: cooperative and comfortable HENMT: COMMON NORMALS: normocephalic, atraumatic and hearing grossly normal bilaterally HEAD & SCALP: normocephalic and atraumatic Eye: OTHER: Pupils sluggish to respond to direct light. Mild lateral horizontal nystagmus Neck/C-Spine: COMMON NORMALS: full ROM, no lymphadenopathy, supple and no JVD Lymph: LYMPHATIC: no lymphadenopathy noted and no lymphedema noted Resp: COMMON NORMALS: normal respiratory effort, No retractions, No use of accessory muscles and clear to auscultation bilaterally AUSCULTATION: clear to auscultation bilaterally Cardio: COMMON NORMALS: no JVD, regular rate, regular rhythm and No murmurs present (Cardio) RATE: regular rate RHYTHM: regular rhythm GI: COMMON NORMALS: Soft to palpation and No hepatosplenomegaly present AUSCULTATION: Yes normoactive bowel sounds PALPATION: Yes Soft to palpation, No Tenderness to palpation present (GI), No Guarding due to palpation present (GI) and Yes No hepatosplenomegaly present Extremity: COMMON NORMALS: normal to inspection, capillary refill normal, no clubbing, cyanosis or edema, no calf tenderness and no pedal edema Psych: THOUGHT CONTENT: No delusions Skin: COMMON NORMALS: no rashes or lesions noted GENERAL SKIN EXAM: no rashes or lesions noted Course Vital Signs: Vital signs: Vital Signs Temperature 97.5 F L 08/27/20 08:30 Pulse Rate 72 08/27/20 09:00 Respiratory Rate 19 H 08/27/20 09:00 Blood Pressure 135/88 08/27/20 09:00 Pulse Oximetry 99 08/27/20 09:00 MDM - Altered Mental Status MDM Narrative: Medical decision making narrative: Patient is having hallucinations but is fathering dying. Patient denies any pain or problem anywhere he does admit has not been taking the Haldol that was prescribed to him previously. We did confirm with family members his father still alive according old notes he was a previous primary caregiver he is not he denies any pain anywhere. He is in almost a catatonic-like state at this point. Additionally is having these hallucinations he has had hallucinations in the past although they were much more vibrant it seems. We will have discussed with Dr. Truong will go ahead and admit to the psychiatry unit. Lab Data: Labs: Lab Results 08/27/20 08/27/20 08/27/20 Range/Units 06:00 06:00 06:00 WBC 10.4 H (4.0-10.0) 10^3/ uL RBC 4.98 (4.1-5.3) 10^6/u L Hgb 15.7 (11.7-16.6) g/dL Hct 48.0 (42.0-52.0) % MCV 96.4 H (80-94) fL MCH 31.5 (28.0-34.0) pg MCHC 32.7 (30.0-36.0) g/dL RDW 13.0 (12.1-15.1) % Plt Count 294 (130-400) 10^3/c mm MPV 10.6 H (7.4-10.4) fL Neut % (Auto) 55.9 % Lymph % (Auto) 29.0 % Haines % (Auto) 12.7 % Eos % (Auto) 1.2 % Baso % (Auto) 0.8 % Neut # (Auto) 5.80 (1.8-7.7) 10^3/u L Lymph # (Auto) 3.0 (0.8-4.8) 10^3/u L Haines # (Auto) 1.3 H (0.2-0.9) 10^3/u L Eos # (Auto) 0.1 (0.0-0.8) 10^3/u L Baso # (Auto) 0.1 (0.0-0.1) 10^3/u L Nucleated RBC % (a uto) 0 % Nucleated RBCs # 0.0 /100WBC Lactic Acid (0.5-2.2) mmol/L Urine Color (Yellow) Urine Appearance (CLEAR) Urine pH (5-7) Ur Specific Gravit y (1.005-1.030) Urine Protein (Negative) Urine Glucose (UA) (Normal) Urine Ketones (Negative) Urine Blood (Negative) Urine Nitrate (Negative) Urine Bilirubin (Negative) Urine Urobilinogen (Negative) mg/dL Ur Leukocyte Jenni ase (Negative) Urine RBC (0-2) /hpf Urine WBC (0-5) /hpf Ur Squamous Epith Cells (0-5) /hpf Amorphous Sediment Urine Bacteria (NONE) /hpf Hyaline Casts /lpf Urine Mucus /hpf Salicylates Cancelled Urine Opiates Scre en (Negative) ng/mL Acetaminophen Cancelled Ur Barbiturates Sc reen (Negative) ng/mL Ur Phencyclidine S crn (Negative) ng/mL Ur Amphetamines Sc reen (Negative) ng/mL U Benzodiazepines Scrn (Negative) ng/mL Urine Cocaine Scre en (Negative) ng/mL U Marijuana (THC) Screen (Negative) ng/mL Ethyl Alcohol Cancelled Serum Ketones Cancelled 08/27/20 08/27/20 08/27/20 Range/Units 07:27 07:27 07:27 WBC (4.0-10.0) 10^3/ uL RBC (4.1-5.3) 10^6/u L Hgb (11.7-16.6) g/dL Hct (42.0-52.0) % MCV (80-94) fL MCH (28.0-34.0) pg MCHC (30.0-36.0) g/dL RDW (12.1-15.1) % Plt Count (130-400) 10^3/c mm MPV (7.4-10.4) fL Neut % (Auto) % Lymph % (Auto) % Haines % (Auto) % Eos % (Auto) % Baso % (Auto) % Neut # (Auto) (1.8-7.7) 10^3/u L Lymph # (Auto) (0.8-4.8) 10^3/u L Haines # (Auto) (0.2-0.9) 10^3/u L Eos # (Auto) (0.0-0.8) 10^3/u L Baso # (Auto) (0.0-0.1) 10^3/u L Nucleated RBC % (a uto) % Nucleated RBCs # /100WBC Lactic Acid 1.3 (0.5-2.2) mmol/L Urine Color (Yellow) Urine Appearance (CLEAR) Urine pH (5-7) Ur Specific Gravit y (1.005-1.030) Urine Protein (Negative) Urine Glucose (UA) (Normal) Urine Ketones (Negative) Urine Blood (Negative) Urine Nitrate (Negative) Urine Bilirubin (Negative) Urine Urobilinogen (Negative) mg/dL Ur Leukocyte Jenni ase (Negative) Urine RBC (0-2) /hpf Urine WBC (0-5) /hpf Ur Squamous Epith Cells (0-5) /hpf Amorphous Sediment Urine Bacteria (NONE) /hpf Hyaline Casts /lpf Urine Mucus /hpf Salicylates < 0.3 L Urine Opiates Scre en (Negative) ng/mL Acetaminophen < 5.0 L Ur Barbiturates Sc reen (Negative) ng/mL Ur Phencyclidine S crn (Negative) ng/mL Ur Amphetamines Sc reen (Negative) ng/mL U Benzodiazepines Scrn (Negative) ng/mL Urine Cocaine Scre en (Negative) ng/mL U Marijuana (THC) Screen (Negative) ng/mL Ethyl Alcohol < 10 Serum Ketones Negative 08/27/20 08/27/20 Range/Units 08:21 08:21 WBC (4.0-10.0) 10^3/ uL RBC (4.1-5.3) 10^6/u L Hgb (11.7-16.6) g/dL Hct (42.0-52.0) % MCV (80-94) fL MCH (28.0-34.0) pg MCHC (30.0-36.0) g/dL RDW (12.1-15.1) % Plt Count (130-400) 10^3/c mm MPV (7.4-10.4) fL Neut % (Auto) % Lymph % (Auto) % Haines % (Auto) % Eos % (Auto) % Baso % (Auto) % Neut # (Auto) (1.8-7.7) 10^3/u L Lymph # (Auto) (0.8-4.8) 10^3/u L Haines # (Auto) (0.2-0.9) 10^3/u L Eos # (Auto) (0.0-0.8) 10^3/u L Baso # (Auto) (0.0-0.1) 10^3/u L Nucleated RBC % (a uto) % Nucleated RBCs # /100WBC Lactic Acid (0.5-2.2) mmol/L Urine Color Yellow (Yellow) Urine Appearance Clear (CLEAR) Urine pH 5 (5-7) Ur Specific Gravit y 1.025 (1.005-1.030) Urine Protein Neg (Negative) Urine Glucose (UA) Norm (Normal) Urine Ketones 1+ H (Negative) Urine Blood Neg (Negative) Urine Nitrate Negative (Negative) Urine Bilirubin 1+ H (Negative) Urine Urobilinogen 1 H (Negative) mg/dL Ur Leukocyte Jenni ase Trace H (Negative) Urine RBC None (0-2) /hpf Urine WBC 0-4 H (0-5) /hpf Ur Squamous Epith Cells None (0-5) /hpf Amorphous Sediment Not Reportable Urine Bacteria Trace (NONE) /hpf Hyaline Casts 0-4 H /lpf Urine Mucus 2+ /hpf Salicylates Urine Opiates Scre en Negative (Negative) ng/mL Acetaminophen Ur Barbiturates Sc reen Negative (Negative) ng/mL Ur Phencyclidine S crn Negative (Negative) ng/mL Ur Amphetamines Sc reen Negative (Negative) ng/mL U Benzodiazepines Scrn Negative (Negative) ng/mL Urine Cocaine Scre en Negative (Negative) ng/mL U Marijuana (THC) Screen Negative (Negative) ng/mL Ethyl Alcohol Serum Ketones Discharge Plan Discharge Patient Disposition: Admitted As Inpatient Clinical Impression: Acute psychosis, Intellectual disability, Cluster A personality disorder, Psychosis Condition: Stable Prescriptions: No Action haloperidol 5 mg Tablet 2.5 mg PO BID 30 Days Qty: 30 RF: 1 Coding Level of Care Code ED Heel Seam Rubber for Melvag Fwd Exam Comprehensive
--- NOTE | 2020-08-27 07:09 | ECG_ITS ---
[facility] Test Date: 2020-08-27 Pat Name: Hakan Lubin Department: Room: Gender: Male Grades 1 Through 6 Teacher: : 1975 Requested By: Abran Norris Order Number: [id number] Floridalma MD: Delvis Palomo M.D. Measurements Intervals [place] Rate: 93 P: 79 IL: 135 QRS: 93 QRSD: 85 T: 46 QT: 338 QTc: 421 Interpretive Statements SINUS RHYTHM POSSIBLE RIGHT ATRIAL ENLARGEMENT [0.25mV P WAVE] LEFT ATRIAL ENLARGEMENT [-0.15mV P WAVE IN V1/V2] BORDERLINE RIGHT AXIS DEVIATION [QRS AXIS > 90] Compared to ECG 06/20/2020 19:52:48 Atrial abnormality now present T-wave abnormality no longer present Electronically Signed On 08-27-2020 20:11:10 CDT by Delvis Paloom M.D. [id number]
[2020-08-27 07:21] LABS: Basophils # 0.1 10^3/uL (0.0-0.1); Basophils % 0.8 %; Eosinophils # 0.1 10^3/uL (0.0-0.8); Eosinophils % 1.2 %; Hemoglobin 15.7 g/dL (11.7-16.6); Mean Corpuscular HGB Conc 32.7 g/dL (30.0-36.0); Mean Corpuscular Hemoglobin 31.5 pg (28.0-34.0); Mean Corpuscular Volume 96.4 fL (80-94); Mean Platelet Volume 10.6 fL (7.4-10.4); Monocytes # 1.3 10^3/uL (0.2-0.9); Monocytes % 12.7 %; Neutrophils % 55.9 %; Nucleated Red Blood Cells % 0 %; Platelet Count 294 10^3/cmm (130-400); Red Blood Count 4.98 10^6/uL (4.1-5.3); White Blood Count 10.4 10^3/uL (4.0-10.0)
[2020-08-27 07:53] LABS: Lactic Sepsis W/Reflex 1.3 mmol/L (0.5-2.2)
[2020-08-27 07:56] LABS: Acetaminophen < 5.0 ug/mL (10-30); Alcohol Level < 10 mg/dL (0-10); Salicylate < 0.3 mg/dL (3-10)
[2020-08-27 07:57] LABS: Ketone (Acetest) Serum Negative (Negative)
[2020-08-27 08:38] LABS: Glucose Urine UA Norm (Normal); Ketones Urine 1+ (Negative); Protein Urine Neg (Negative); Specific Gravity, Urine 1.025 (1.005-1.030); Urine Appearance Clear (CLEAR); Urine Color Yellow (Yellow); pH Urine 5 (5-7)
[2020-08-27 08:39] LABS: Add Urine Microscopic? YES; Bilirubin Urine 1+ (Negative); Blood Urine Neg (Negative); Leukocyte Esterase Urine Trace (Negative); Nitrate Urine Negative (Negative); Urobilinogen Urine 1 mg/dL (Negative)
[2020-08-27 08:46] LABS: Amphetamines Screen Urine Negative (Negative); Barbiturates Screen Urine Negative (Negative); Benzodiazepines Screen Urine Negative (Negative); Cocaine Screen Urine Negative (Negative); Opiate Screen Urine Negative (Negative); PCP Screen Urine Negative (Negative); THC Screen Urine Negative (Negative)
[2020-08-27 08:49] LABS: Add Urine Culture? No; Bacteria Urine TRACE /hpf; Hyaline Casts Urine 0-4 /lpf; Mucus Urine 2+ /hpf; WBC Urine 0-4 /hpf (0-5)
[2020-08-27] MEDS: nicotine 2 mg Gum BUCCAL (13:46)
--- NOTE | 2020-08-27 15:39 | P.HP_ITS ---
Providers/Chief Complaint Admitting Physician: Miky Truong DO Chief Complaint: confused HPI NPU History of Present Illness Hakan Lubin JR is a 45 year old male with history of paranoid schizophrenia, intellectual disability, cluster a personality presented to the emergency department by ambulance after a coworker was concerned about him wandering out into the parking lot and standing and not being responsive to verbal stimuli. Patient continues to be flat with regards to affect and slow with regards to responses but continues to report some paranoid delusions. He denies any depressive symptoms and denies any mood symptoms, denies any suicidal ideation. He denies any visual or auditory hallucinations but reports that he is being set up and watched by others. Patient is a difficult historian with poverty of speech and not providing many answers to questions with regards to review of systems or other details about recent events. Review of Systems General: Reports: ROS unobtainable due to mental status Meds NPU Home Medications Medication Instructions Recorded Confirmed Last Taken Type haloperidol 2.5 mg PO BID 30 Days #30 tab 06/21/20 08/27/20 Unknown Rx Allergies Allergy/AdvReac Type Severity Reaction Status Date / Time muscle relaxers Allergy Unknown Unknown Uncoded 08/27/20 06:15 [facility] NPU Other Psychiatric History: Other Psychiatric History: Unclear but recent psychiatric admission June 2020 for paranoia, bizarre behavior Denies any history of suicide attempt or self-harm behavior Mental Status Exam MSE Comments: Gaunt, unshaven male, wearing hospital scrubs, poor rapport with interviewer, fair eye contact Psychomotor activity is decreased, no agitation Speech with frequent pauses and significant delays between questions and response, low volume, not pressured, requires prompting I am fine, incongruent, flat, not labile Alert, oriented to person, place, requires some prompting with regards to month and year but is able to report date and year Memory and concentration are fair, somewhat distractible Intellectual functioning appears to be below average based on vocabulary, interview Thought process, significantly delayed, no flight of ideas, no looseness of associations Thought content, communicates some paranoia, does not appear to be attending to any internal stimuli, no suicidal homicidal ideation Insight and judgment appear to be fair Vitals/I&O/Wt Last Vital Signs Temp 98.2 F 08/27/20 13:56 Pulse 61 08/27/20 13:56 Resp 20 H 04/12/21 13:56 BP 117/74 08/27/20 13:56 Pulse Ox 99 08/27/20 13:56 Weight last 48 hrs Weight 79.379 kg Data NPU : 08/27/20 06:00 A&P Assessment and plan (1) Paranoid schizophrenia: Status: Acute (2) Cluster A personality disorder: Status: Acute (3) Intellectual disability: Status: Acute Additional A&P Information Patient with unclear series of events presenting to the hospital by EMS secondary to concerns of wandering behavior, flat affect, confusion, history of paranoia, bizarre behavior appears to have little insight into concerns about self-care or wandering behavior. Unremarkable medical work-up, urine drug screen negative INVOLUNTARY ADMIT to inpatient psychiatry START olanzapine 5 mg twice daily targeting psychotic symptoms, paranoid delusions Encouraged patient to participate in unit activities to include group sessions, unit milieu Involuntary Hold Information 96 Hour Hold: 96 Hour Involuntary Admission: No 96 Hour Hold Ending Date: 06/26/20 96 Hour Hold Ending Time: 16:45 Attestations NPU Medical Necessity Statement*: Require psychiatric hospitalization for bizarre behavior, paranoid delusions, concerns about self-care as well as coordination for safe discharge Anticipate hospital stay to exceed 2 midnights Time Spent in Patient Care: Greater than 35 minutes (>than 50% of time spent in counselling and/or direct pt care on unit) . Coding Level of Care Code Acute Check Examiner for [facility] Diagnoses Paranoid schizophrenia F20.0 Cluster A personality disorder F60.89 Intellectual disability F79
[2020-08-27] MEDS: OLANZapine 5 mg TABLET PO ×2 (15:41→20:26)
--- NOTE | 2020-08-27 22:14 | PC.NURSE ---
in room resting quietly with both eyes closed
[2020-08-28 06:00] VITALS: BP 111/74; PULSE 63; RESP 16; TEMP 36.8; O2SAT 100
[2020-08-28] MEDS: OLANZapine 5 mg TABLET PO (08:30)
--- NOTE | 2020-08-28 12:20 | PM.NPN ---
Subjective NPU Subjective: Interval history: Patient continues to be difficult historian because of slow responses which may likely be secondary to baseline low intellectual functioning or developmental disorder. 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 Further history has clarified that the patient had not been sleeping for a couple of days prior to his admission to the hospital and likely has been exacerbating some of his odd behavior and statements. He denies use of any illicit substances or any use of any energy drinks or herbal supplements. He denies any depressive symptoms, denies any suicidal ideation. He denies any auditory hallucinations or visual hallucinations, denies any delusions. Currently denying any paranoid delusions and clarifies that he did not feel like his cigarettes were being poisoned rather, that he felt like smoking in general was bad for him and poisoning his lungs. Patient reports having a good appetite, reports that he has been sleeping well Per nurse report, no reports of any behavioral disturbances or bizarre behavior Mental Status Exam MSE Comments: Thin, unshaven, tired appearing male wearing hospital scrubs, sitting at day room table with social services counselor talking, good eye contact. Some psychomotor slowing which appears to be his baseline, no agitation Speech is somewhat slow with frequent pauses which evidently is also baseline, spontaneous, not pressured, fair articulation I am okay, incongruent, flat, not labile Alert, oriented to person, place, time Memory and concentration are fair per interview Thought process, delayed, no flight of ideas, no looseness of associations Thought content, no stated delusions, does not appear to be attending to any internal stimuli, no suicidal homicidal ideation Insight and judgment appear to be fair Vitals/I&O/Wt Last Vital Signs Temp 98.2 F 08/28/20 06:00 Pulse 63 08/28/20 06:00 Resp 16 08/28/20 06:00 BP 111/74 08/28/20 06:00 Pulse Ox 100 08/28/20 06:00 Weight last 48 hrs Weight 79.379 kg Data NPU : 08/27/20 06:00 A&P Assessment and plan (1) Cluster A personality disorder: Status: Acute (2) Intellectual disability: Status: Acute (3) Problems related to lack of adequate sleep: Status: Acute Additional A&P Information Continues to be a difficult historian given frequent pauses and delays in slow processing secondary to developmental delay/intellectual functioning. 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 He currently denies any mood symptoms, denies any psychotic symptoms. Patient reports that he has felt exhausted recently with a 2-day period of no sleep or little to no sleep prior to his admission to the hospital. Continues to have unclear paranoid themes and unclear about how it is related to his sleep deprivation. Would continue to benefit from low-dose olanzapine with reevaluation outpatient for discontinuation. 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
[2020-08-28] MEDS: nicotine 2 mg Gum BUCCAL ×2 (13:49→19:48)
[2020-08-28 14:00] VITALS: BP 104/72; PULSE 85; RESP 18; TEMP 37.1; O2SAT 97
[2020-08-28 19:46] VITALS: BP 111/74; PULSE 81; RESP 15; TEMP 37.4; O2SAT 99
--- NOTE | 2020-08-28 21:25 | PC.NURSE ---
at 19:48 patient requested, and received Nicorette 2mg gum.
[2020-08-29 06:00] VITALS: BP 114/69; PULSE 62; RESP 14; TEMP 36.7; O2SAT 98
[2020-08-29] MEDS: OLANZapine 5 mg TABLET 2.5 MG PO (08:11)
--- NOTE | 2020-08-29 09:04 | P.DS_ITS ---
Diagnoses at Discharge Discharge Diagnosis (1) Cluster A personality disorder: Status: Acute (2) Intellectual disability: Status: Acute (3) Problems related to lack of adequate sleep: Status: Acute Reason for Visit Reason for Visit: confused Hospital Course Hospital Course With recently reported history of paranoid schizophrenia, intellectual disability, cluster a personality presented to the emergency department by ambulance after a coworker was concerned about him wandering out into the parking lot and standing and not being responsive to verbal stimuli. Patient continues to be flat with regards to affect and slow with regards to responses but continues to report some paranoid delusions. Patient continued to have delayed responses with flat affect and was started on olanzapine 5 mg twice daily which was subsequently reduced to olanzapine 2.5 mg daily with good effect . It continues to be unclear if patient was truly disorganized or psychotic versus sleep deprived given that he works 4 days a week at night and maintains a daytime schedule on his days off. He denied any mood symptoms, denied any depressed symptoms, denied any suicidal ideation and reported improved sleep and states that he felt more rested. Patient was not suicidal and denied any psychotic symptoms at the time of discharge and did not appear to pose an imminent threat of harm to self or others. Low to moderate risk of harm to self or others given no current psychotic symptoms and no suicidal ideation although patient's risk may be elevated for confusion if he continues to maintain a daytime orientation on his days off leading to potential sleep deprivation or is noncompliant with his follow-up care leading to unexpected, impulsive behavior. Risk mitigation included hospitalization for observation for any ongoing or persisting psychotic symptoms, medication stabilization, recommendation to maintain a schedule consistent with his work schedule for sleep-wake cycle in order to minimize worsening sleep deprivation. Patient was able to communicate his understanding of the above recommendations to include being compliant with follow-up care in order to further mitigate his risk of harm to self and others. Involuntary Hold Information 96 Hour Hold: 96 Hour Involuntary Admission: No 96 Hour Hold Ending Date: 06/26/20 96 Hour Hold Ending Time: 16:45 Mental Status Exam MSE Comments: Sitting on his bed, appropriately groomed and dressed, calm, cooperative, good eye contact Psychomotor activity is neither increased nor decreased, no agitation Speech is improved with regards to rate but somewhat slow with no pauses per previous evaluation, spontaneous, not pressured, fair articulation I feel good, incongruent, flat, not labile Alert, oriented to person, place, time Memory and concentration are fair per interview Thought process, delayed, no flight of ideas, no looseness of associations Thought content, no stated delusions, does not appear to be attending to any internal stimuli, no suicidal homicidal ideation Insight and judgment appear to be fair to intact Discharge Data Vitals: Last Vital Signs Temp 98.0 F 08/29/20 06:00 Pulse 62 08/29/20 06:00 Resp 14 08/29/20 06:00 BP 114/69 08/29/20 06:00 Pulse Ox 98 08/29/20 06:00 Discharge Plan Discharge Patient Disposition: Home Condition: Stable Prescriptions: New olanzapine 5 mg Tablet 2.5 mg PO DAILY Qty: 30 RF: 0 Discontinued haloperidol 5 mg Tablet 2.5 mg PO BID 30 Days Qty: 30 RF: 1 Discharge Orders: Discharge Order (Routine); Ordered 08/29/20 Ordered By: Miky Truong Discharge Diet: Regular Discharge Activity: Resume usual activity Patient Instructions: Opioid Safety Discharge Attestations NPU Time Spent in Discharge Care*: greater than 30 min Status at Discharge: Cognitive status at discharge: cognitively intact , Behavioral status at discharge: cooperative , Functional status at discharge: independent ambulation Overall status at discharge: patient is back to baseline Coding Level of Care Code Acute Chg FW DC note Diagnoses Cluster A personality disorder F60.89 Intellectual disability F79 Problems related to lack of adequate sleep Z72.820
[2020-08-29 09:13] VITALS: BP 114/69; PULSE 62; RESP 14; TEMP 36.7; O2SAT 98
== END 2020-08-29 12:13 | disposition home or self-care (01) | DRG 885 ==
LOC: ER 09:23 → NP 09:27
PROVIDERS: Admitting Provider Psychiatry & Neurology Psychiatry; Emergency Provider Family Medicine; Visit Provider Psychiatry & Neurology Psychiatry
DX: F20.0 Paranoid schizophrenia (principal); F60.89 Other specific personality disorders; F79 Unspecified intellectual disabilities
CPT/HCPCS: 80306; 80307; 81001; 82009; 83605; 85025; 93005; 99285

== ENCOUNTER → 2021-12-05 14:18 | Outpatient (BNVA) | payer MEDICAID, SELFPAY | PROVIDERS: Visit Provider Nurse Practitioner | DX: F20.0 Paranoid schizophrenia (principal); Z79.899 Other long term (current) drug therapy | CPT/HCPCS: 80061; 83036 ==

== ENCOUNTER → 2022-03-25 14:32 | Outpatient (BNVA) | payer OTHER, SELFPAY ==
[2021-12-09 16:07] VITALS: BP 122/67
== END ==
PROVIDERS: Visit Provider Nurse Practitioner Psychiatric/Mental Health
DX: Z03.89 Encounter for observation for other suspected diseases and conditions ruled out (principal); Z79.899 Other long term (current) drug therapy
CPT/HCPCS: 80053; 82306; 84443; 85025

== ENCOUNTER → 2022-08-06 11:27 | Outpatient (BNVA) | payer OTHER, SELFPAY ==
[2021-12-09 16:07] VITALS: BP 122/67
== END ==
PROVIDERS: PCP Family Medicine; Visit Provider Nurse Practitioner Psychiatric/Mental Health
DX: Z79.899 Other long term (current) drug therapy (principal)
CPT/HCPCS: 80053; 82607; 82652; 85025

== ENCOUNTER → 2022-10-10 09:48 | Outpatient (BNVA) | payer MEDICAID, SELFPAY ==
[2021-12-09 16:07] VITALS: BP 122/67
== END ==
PROVIDERS: PCP Family Medicine; Visit Provider Nurse Practitioner
DX: Z79.899 Other long term (current) drug therapy (principal); R79.89 Other specified abnormal findings of blood chemistry
CPT/HCPCS: 80053; 80061; 82306; 84443; 85025

== ENCOUNTER → 2023-06-05 10:23 | Outpatient (BNVA) | payer MEDICARE, MEDICAID, SELFPAY ==
[2021-12-09 16:07] VITALS: BP 122/67
== END ==
PROVIDERS: PCP Nurse Practitioner Family; Visit Provider Nurse Practitioner Family
DX: R79.89 Other specified abnormal findings of blood chemistry (principal); Z79.899 Other long term (current) drug therapy; Z13.6 Encounter for screening for cardiovascular disorders; K04.7 Periapical abscess without sinus
CPT/HCPCS: 80053; 80061; 81003; 82306; 83036; 84443; 85025

== ENCOUNTER → 2023-09-18 11:26 | Outpatient (BNVA) | payer MEDICARE, MEDICAID, OTHER, SELFPAY ==
[2021-12-09 16:07] VITALS: BP 122/67
== END ==
PROVIDERS: PCP Nurse Practitioner Family; Visit Provider Nurse Practitioner Family
DX: E78.2 Mixed hyperlipidemia (principal); Z79.899 Other long term (current) drug therapy; Z00.00 Encounter for general adult medical examination without abnormal findings
CPT/HCPCS: 80053; 80061; 81003; 83036; 84443; 85025

== ENCOUNTER → 2024-01-15 11:01 | Outpatient (BNVA) | payer MEDICARE, MEDICAID, OTHER, SELFPAY ==
[2021-12-09 16:07] VITALS: BP 122/67
== END ==
PROVIDERS: PCP Nurse Practitioner Family; Visit Provider Nurse Practitioner Family
DX: R79.89 Other specified abnormal findings of blood chemistry (principal)
CPT/HCPCS: 80061

== ENCOUNTER → 2024-07-08 09:04 | Outpatient (BNVA) | payer MEDICARE, MEDICAID, SELFPAY ==
[2024-06-28 10:37] VITALS: BP 122/67
== END ==
PROVIDERS: PCP Nurse Practitioner Family; Visit Provider Nurse Practitioner Family
DX: Z79.899 Other long term (current) drug therapy (principal); E78.2 Mixed hyperlipidemia; R79.89 Other specified abnormal findings of blood chemistry
CPT/HCPCS: 80053; 80061; 81003; 82306; 83036; 84443; 85025

== ENCOUNTER → 2024-08-04 10:11 | Outpatient (BNVA) | payer MEDICARE, MEDICAID, SELFPAY ==
[2024-06-28 10:37] VITALS: BP 122/67
== END ==
PROVIDERS: PCP Nurse Practitioner Family; Visit Provider Nurse Practitioner Family
DX: Z79.899 Other long term (current) drug therapy (principal); E78.2 Mixed hyperlipidemia; R79.89 Other specified abnormal findings of blood chemistry
CPT/HCPCS: 81003

== ENCOUNTER → 2024-10-28 08:19 | Outpatient (BNVA) | payer MEDICARE, MEDICAID, SELFPAY ==
[2024-06-28 10:37] VITALS: BP 122/67
== END ==
PROVIDERS: PCP Nurse Practitioner Family; Visit Provider Nurse Practitioner Family
DX: E78.2 Mixed hyperlipidemia (principal); R79.89 Other specified abnormal findings of blood chemistry; R53.83 Other fatigue; Z79.899 Other long term (current) drug therapy
CPT/HCPCS: 80053; 80061; 81003; 82306; 83036; 84443; 85025

== ENCOUNTER → 2025-04-07 10:32 | Outpatient (BNVA) | payer MEDICARE, MEDICAID, OTHER, SELFPAY ==
[2024-06-28 10:37] VITALS: BP 122/67
== END ==
PROVIDERS: PCP Nurse Practitioner Family; Visit Provider Nurse Practitioner Family
DX: Z79.899 Other long term (current) drug therapy (principal); E78.2 Mixed hyperlipidemia; R79.89 Other specified abnormal findings of blood chemistry
CPT/HCPCS: 80053; 80061; 81003; 82306; 83036; 84443; 85025